=== PATIENT | male | born 2000 | race Hispanic/Latino ===

== ENCOUNTER 2021-07-06 15:03 | Emergency (ER) | payer OTHER ==
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
[2021-07-06] MEDS ORDERED: LIDOCAINE 1% MPF 5 ML VIAL ONE (16:23)
[2021-07-06] MEDS ORDERED: HYDROCODONE/APAP 7.5/325 MG TAB ONE (16:24)
[2021-07-06] MEDS ORDERED: LIDOCAINE VISCOUS 2% SOLN 15 ML UDC ONE (16:24)
[2021-07-06] MEDS ORDERED: TETANUS & DIPHTHERIA TOX,ADULT 0.5 ML VIAL ONE (16:25)
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
[2021-07-06 19:13] VITALS: TEMP 97.5; O2SAT 98
[2021-07-06 19:14] VITALS: BP 110/77
== END 2021-07-06 19:07 | disposition home or self-care (01) ==
LOC: ER 15:03
PROC: 0JQG0ZZ Repair Right Lower Arm Subcutaneous Tissue and Fascia, Open Approach (ICD-10-PCS; principal; 2021-07-06)
DX: S51.011A Laceration without foreign body of right elbow, initial encounter (principal); S60.512A Abrasion of left hand, initial encounter; S60.511A Abrasion of right hand, initial encounter; S80.811A Abrasion, right lower leg, initial encounter; V28.4XXA Motorcycle driver injured in noncollision transport accident in traffic accident, initial encounter; Z23 Encounter for immunization
CPT/HCPCS: 72192; 90471; 90714; 99284